=== PATIENT | female | born 1955 | race Caucasian/White ===

== ENCOUNTER → 2023-12-10 12:28 | Outpatient (REF) | payer MEDICARE, OTHER, SELFPAY | LOC: RAD 12:28 | PROVIDERS: ATTENDING PHYSICIAN Internal Medicine Rheumatology; FAMILY PHYSICIAN Internal Medicine | DX: M81.0 Age-related osteoporosis without current pathological fracture (principal); Z51.81 Encounter for therapeutic drug level monitoring | CPT/HCPCS: 77080 ==